=== PATIENT | male | born 1960 | race Caucasian/White ===

== ENCOUNTER 2018-06-09 10:08 | Day surgery (SDC) | payer BC ==
[2018-06-03 11:25] VITALS: BMI 31.1
[2018-06-09] MEDS ORDERED: LIDOCAINE 1%/EPI 1:100000 (20 ML MULTI DOSE VIAL) ONE (12:21)
[2018-06-09] MEDS ORDERED: BACITRACIN/POLYMYXIN OPH OINT 3.5 GM TUBE ONE (12:21)
[2018-06-09] MEDS ORDERED: PROPOFOL 20 ML ONE (12:31)
[2018-06-09] MEDS ORDERED: MIDAZOLAM HCL 2 MG/2 ML SINGLE DOSE VIAL ONE (12:31)
[2018-06-09] MEDS ORDERED: fentaNYL CITRATE 250 MCG/5 ML VIAL ONE (12:31)
[2018-06-09] MEDS ORDERED: BUPIVACAINE HCL/EPINEPHRINE/PF 30 ML VIAL IJ ONE (12:32)
[2018-06-09] MEDS ORDERED: BUPIVACAINE 0.25% /EPI 1:200,000 10 ML VIAL NR ONE (12:48)
[2018-06-09] MEDS ORDERED: BSS (NA/CA/MG/K) BALANCED SALT SOLUTION OPHTH SOLN 15 ML BOTTLE ONE (13:47)
[2018-06-09] MEDS ORDERED: ACETAMINOPHEN 325 MG TABLET (FP) PO PRN ×2 (14:03→14:22)
[2018-06-09] MEDS ORDERED: ONDANSETRON 4 MG/2 ML VIAL IVPUSH PRN (14:03)
[2018-06-09] MEDS ORDERED: LACTATED RINGERS SOLUTION 1,000 ML IV SCH (14:15)
[2018-06-09] MEDS ORDERED: oxyCODONE HCL 5 MG TABLET PO ONE (15:30)
[2018-06-09] MEDS ORDERED: ACETAMINOPHEN 325 MG TABLET (FP) ONE (15:39)
[2018-06-09 16:29] VITALS: BP 128/68; PULSE 67; TEMP 97.9
--- NOTE | 2018-06-13 17:18 | OP ---
DATE OF OPERATION: 06/09/2018 PREOPERATIVE DIAGNOSIS: 1. Right lower eyelid retraction with ectropion. 2. Left lower eyelid retraction with ectropion. POSTOPERATIVE DIAGNOSIS: 1. Right lower eyelid retraction with ectropion. 2. Left lower eyelid retraction with ectropion. PROCEDURE: Bilateral lower eyelid canthopexies. ATTENDING SURGEON: Da Jacobs MD ANESTHESIA: General with LMA. ESTIMATED BLOOD LOSS: Less than 5 mL. SPECIMEN: None. COMPLICATIONS: None. CONDITION: Stable to recovery room, extubated. INDICATIONS: The patient is a 57-year-old gentleman with a history of bilateral upper and lower eyelid blepharoplasties approximately 3 months ago. Postoperatively the patient has developed bilateral lower eyelid cicatricial retraction. He has mild corneal exposure issues and has been managing these with eyedrops during the day and eye ointment at night. The patient's progress has plateaued with postoperative massage and taping. He is therefore brought to the operating room today for tightening of the lower eyelid lateral canthal mechanism. The risks, benefits and alternatives of the procedure were discussed with the patient and his family preoperatively and all questions were answered. The risks include but are not limited to bleeding, infection, pain, need for revision and further surgery, residual retraction and/or ectropion, residual corneal exposure, damage to neighboring structures including nerves, arteries, veins and tendons, damage to the underlying cornea and/or globe resulting in permanent visual impairment. The patient understands these risks and elects to proceed with surgery. DESCRIPTION OF PROCEDURE: After proper identification and marking of the patient in the preoperative holding area, the patient was transported to the operating room and placed supine on the table. All noninvasive and monitors were applied and intravenous access was established. General anesthesia was administered and LMA was inserted without difficulty. SCD boots were applied to bilateral extremities. Intravenous antibiotics were then given. Bilateral corneal protectors were then placed with care taken to provide adequate Lacri-Lube. The patient's face was then prepped and draped sterilely using ophthalmic Betadine solution. The previous subciliary incisions were then outlined and the lateral portions of these were infiltrated with 0.25% Marcaine with 1:200,000 units epinephrine. A total of 4 mL was used between the 2 sides. After a timeout was performed, attention was turned toward the right lower eyelid. A number 16 blade was used to incise along the previous subciliary scar along the lateral 2 cm. A curved tenotomy scissors was then used to raise a skin flap over the underlying orbicularis muscle fibers. This was continued approximately 5 mm. At this point the lateral extent of the lower eyelid at the insertion of the lateral canthus was grasped. The amount of eyelid laxity was then marked based on the displacement test. A straight eyelid scissors was then used to incise the lower eyelid just medial to the lateral canthal insertion. This was continued through the orbicularis fibers, tarsal plate and conjunctiva. The lower eyelid margin was grasped and the amount of resection to be performed was again confirmed and a full-thickness wedge of the lateral aspect of the lower eyelid was excised using straight iris scissors. Electrocautery was used to obtain hemostasis. The eyelid margin was then reapproximated using a 5-0 chromic gut suture in a vertical mattress fashion in order to align and consuelo the martinez line. A 5-0 chromic suture was then placed just inferior to this. The skin flap was redraped and was reapproximated to the subciliary skin margin using a 5-0 fast-absorbing plain gut in a simple wound fashion. A lateral canthopexy with a 5-0 fast-absorbing plain gut between the upper and lower eyelid tarsal margin lateral to the lateral limbus was then placed. The corneal protector had been removed prior to tying down of the 5-0 fast-absorbing plain gut and the eye flushed with balanced salt solution. Once the right-sided canthopexy had been completed, attention was turned toward the left side, where the exact same procedure was performed. Only one side will be dictated. Once bilateral canthopexies were complete the patient was slowly awakened and was transported to the recovery room in stable condition. DA JACOBS M.D. [id number]
== END 2018-06-09 16:29 | disposition home or self-care (01) ==
LOC: FASU 10:08
PROVIDERS: ATTEND Plastic Surgery
PROC: 08SQ0ZZ Reposition Right Lower Eyelid, Open Approach (ICD-10-PCS; 2018-06-09)
PROC: 08SR0ZZ Reposition Left Lower Eyelid, Open Approach (ICD-10-PCS; 2018-06-09)
PROC: 08SQ0ZZ Reposition Right Lower Eyelid, Open Approach (ICD-10-PCS; 2018-06-09)
PROC: 08SR0ZZ Reposition Left Lower Eyelid, Open Approach (ICD-10-PCS; principal; 2018-06-09 12:57)
DX: H02.112 Cicatricial ectropion of right lower eyelid (principal); H02.115 Cicatricial ectropion of left lower eyelid; H02.532 Eyelid retraction right lower eyelid; H02.535 Eyelid retraction left lower eyelid
CPT/HCPCS: 94760

== ENCOUNTER 2019-01-13 11:18 | Day surgery (SDC) | payer BC ==
[2019-01-12 12:57] VITALS: BMI 29.6
[2019-01-13] MEDS ORDERED: MIDAZOLAM HCL 2 MG/2 ML SINGLE DOSE VIAL ONE (13:16)
[2019-01-13] MEDS ORDERED: PROMETHAZINE HCL 25 MG/1 ML VIAL IVPB PRN (14:13)
[2019-01-13] MEDS ORDERED: ONDANSETRON 4 MG/2 ML VIAL IVPUSH PRN ×2 (14:13→15:57)
[2019-01-13] MEDS ORDERED: ACETAMINOPHEN 500 MG TABLET (FP) PO PRN (14:13)
[2019-01-13] MEDS ORDERED: LACTATED RINGERS SOLUTION 1,000 ML IV SCH ×2 (14:15→16:00)
[2019-01-13] MEDS ORDERED: PROPOFOL 20 ML ONE (14:17)
[2019-01-13] MEDS ORDERED: BUPIVACAINE HCL/EPINEPHRINE/PF 30 ML VIAL IJ ONE (14:20)
[2019-01-13] MEDS ORDERED: POVIDONE-IODINE 5% OPHTHALMIC PREP 30 ML SOLUTION ONE (14:28)
[2019-01-13] MEDS ORDERED: BUPIVACAINE 0.25% /EPI 1:200,000 10 ML VIAL NR ONE (14:32)
[2019-01-13] MEDS ORDERED: ceFAZolin SODIUM 1 GM VIAL IVPB ONE (14:32)
[2019-01-13] MEDS ORDERED: ACETAMINOPHEN 325 MG TABLET (FP) PO PRN (15:57)
[2019-01-13 18:05] VITALS: BP 140/82; PULSE 73; TEMP 97.9
--- NOTE | 2019-01-16 18:35 | OP ---
DATE OF OPERATION: 01/13/2019 PREOPERATIVE DIAGNOSES: 1. Retraction and ectropion of left lower eyelid. 2. Retraction and ectropion of right lower eyelid. POSTOPERATIVE DIAGNOSES: 1. Retraction and ectropion of left lower eyelid. 2. Retraction and ectropion of right lower eyelid. PROCEDURES: Bilateral lower eyelid canthoplasties using tarsal strips. ATTENDING SURGEON: Da Jacobs MD ANESTHESIA: General endotracheal. ESTIMATED BLOOD LOSS: Less than 10 mL. SPECIMEN: None. COMPLICATIONS: None. CONDITION: Stable to recovery room, extubated. INDICATIONS: The patient is a 58-year-old gentleman with a history of lower eyelid surgery, who has developed retraction of his lower eyelids with exposure issues. The patient has an abnormal snap-back test on his lower eyelid and is therefore indicated for bilateral lower eyelid canthoplasties in order to improve his eyelid closure. The risks, benefits, and alternatives of the lower eyelid procedures were discussed with the patient preoperatively in detail and all questions were answered. The risks include but are not limited to bleeding, infection, pain, need for revision or further surgery, residual lid retraction and/or ectropion, residual corneal exposure, eye dryness or itching, and damage to neighboring structures, including nerves, arteries, veins, and tendons. The patient understands these risks and has elected to proceed with surgery. PROCEDURE: After proper identification and marking of the patient in the preoperative holding area, the patient was transported to the operating room, placed supine on the table, while noninvasive anesthesia monitors were applied. Intravenous access was established. General anesthesia was administered and the patient was intubated without difficulty. SCD boots were applied to bilateral lower extremities. Intravenous antibiotics were then given. The head of the bed was then turned 90 degrees. Bilateral corneal protectors were then placed. The lower eyelids were then infiltrated with a local anesthetic mixture of 0.25% Marcaine with 1:200,000 units of epinephrine. A total of 5 mL was injected between the 2 eyelids. At this point, the patient's face was prepped and draped using ophthalmic Betadine in standard sterile fashion. Once timeout was performed, attention was turned towards the left lateral canthus, where a horizontal incision measuring 8 mm was made in a preexisting skin crease. A tenotomy scissors was then used to perform an inferior limb cantholysis. The lower eyelid was completely mobilized. It was then advanced laterally and superiorly, and the amount of redundant lower eyelid skin in order to achieve the desired correction was marked. A number 15 blade was then used to incise along the eyelid margin skin. The skin was then de-epithelialized on both the cutaneous and mucosal surfaces and the tarsal plate was completely isolated. The tarsal plate was then advanced and was reattached to the periosteum of the lateral orbital rim using a 6-0 silk suture in an interrupted [id number] fashion. Once the lateral canthal reinsertion had been completed, the external skin was closed with a 5-0 fast-absorbing plain gut in a simple interrupted fashion. Once the lateral canthoplasty on the left side was completed, attention was turned towards the right side, where the exact same procedure was performed, and therefore only one side will be dictated. The left side was noted to be a more significant correction and therefore a 4-0 silk suture was placed as a Gupta stitch and secured to the forehead with Mastisol and Steri-Strips. Once this was completed, bilateral corneal protectors were removed and the eyes were flushed with balanced salt solution and the patient at this point was slowly awakened and was extubated without incident and was then transported to recovery room in stable condition. DA JACOBS M.D. [id number]
== END 2019-01-13 18:07 | disposition home or self-care (01) ==
LOC: JASU-SURG 11:18
PROVIDERS: ATTEND Plastic Surgery
PROC: 08SQ0ZZ Reposition Right Lower Eyelid, Open Approach (ICD-10-PCS; 2019-01-13)
PROC: 08SR0ZZ Reposition Left Lower Eyelid, Open Approach (ICD-10-PCS; principal; 2019-01-13 14:00)
DX: H02.102 Unspecified ectropion of right lower eyelid (principal); H02.105 Unspecified ectropion of left lower eyelid
CPT/HCPCS: 94760